=== PATIENT | male | born 1990 | race Caucasian/White ===

== ENCOUNTER 2020-12-22 14:54 | Outpatient (CLI) | payer OTHER ==
[2020-12-23 01:52] LABS: SARS-CoV-2 PCR by NAA Not Detected (NotDetected)
== END 2020-12-22 14:55 | disposition home or self-care (01) ==
LOC: CSHLAB 14:54
PROVIDERS: ATTEND Orthopaedic Surgery
DX: Z20.822 Contact with and (suspected) exposure to COVID-19 (principal); J45.998 Other asthma
CPT/HCPCS: 87635; U0003; U0005

== ENCOUNTER 2020-12-27 16:50 | Outpatient (CLI) | payer OTHER | END 2020-12-27 16:51 | disposition home or self-care (01) | LOC: CSHCP 16:50 | PROVIDERS: ATTEND Orthopaedic Surgery | DX: J45.998 Other asthma (principal); R94.2 Abnormal results of pulmonary function studies | CPT/HCPCS: 94060; 94760 ==

== ENCOUNTER → 2024-07-08 | Day surgery (SDC) | payer OTHER ==
[~2024-07-08] MED LIST: Gadobenate Dimeglumine 2 ML, Sodium Chloride 0.9% 250 ML 10 ML, Iopamidol 8 ML, Lidocai... FS ONE; Gadobenate Dimeglumine 529 MG/1 ML (5 ML SDV) ONE; Iopamidol 300 61% 100 ML VIAL FS ONE
== END ==
LOC: CSHRAD 09:31
PROVIDERS: ATTEND Family Medicine
PROC: BP28YZZ Computerized Tomography (CT Scan) of Right Shoulder using Other Contrast (ICD-10-PCS; principal; 2024-07-08)
DX: S43.431A Superior glenoid labrum lesion of right shoulder, initial encounter (principal); X58.XXXA Exposure to other specified factors, initial encounter
CPT/HCPCS: 23350; 77002; A9577; J0171; J7050; Q9967

== ENCOUNTER 2025-07-19 07:36 | Outpatient (CLI) | payer OTHER | END 2025-07-19 07:37 | disposition home or self-care (01) | LOC: CSHULT 07:36 | PROVIDERS: ATTEND Internal Medicine | DX: R74.01 Elevation of levels of liver transaminase levels (principal) | CPT/HCPCS: 76705; 93976 ==